=== PATIENT | female | born 1995 | race Caucasian/White ===

== ENCOUNTER 2022-06-25 06:24 | Inpatient (IN) ==
[~2022-06-25 06:24] MED LIST: ANCEF VIAL 1 GRAM IVP ONE; D5 1/2 NS 1,000 ML 1,000 ML IV SCH; KETAMINE HCL ONE; ULTANE GAS IN ONE
[2022-06-25] MEDS ORDERED: NS 100 ML IV 100 ML ONE (06:41)
[2022-06-25] MEDS ORDERED: ANCEF VIAL 1 GRAM ONE (06:41)
[2022-06-25] MEDS ORDERED: NS 1,000 ML IV 1,000 ML ONE ×2 (06:41→09:04)
[2022-06-25] MEDS ORDERED: ZOFRAN INJ 4 MG VIAL ONE (06:55)
[2022-06-25] MEDS ORDERED: FENTANYL VIAL INJ 100 mcg ONE (06:55)
[2022-06-25] MEDS ORDERED: PEPCID 20 MG VIAL ONE (06:55)
[2022-06-25] MEDS ORDERED: VERSED ONE (06:55)
[2022-06-25] MEDS ORDERED: DIPRIVAN VIAL 20 ML ONE (06:56)
[2022-06-25] MEDS ORDERED: TORADOL 30 MG VIAL ONE (06:56)
[2022-06-25] MEDS ORDERED: BRIDION ONE (06:56)
[2022-06-25] MEDS ORDERED: BETADINE SOLN ONE (07:20)
[2022-06-25 07:30] VITALS: BMI 24.4
[2022-06-25] MEDS ORDERED: LACRI-LUBE S.O.P. ONE (07:35)
[2022-06-25] MEDS ORDERED: OFIRMEV IV 1000 MG VIAL 1,000 MG/100 ML VIAL IV ONE (07:36)
[2022-06-25] MEDS ORDERED: DECADRON INJ ONE (07:53)
[2022-06-25] MEDS ORDERED: DILAUDID INJ ONE (08:18)
[2022-06-25] MEDS ORDERED: BENADRYL INJ 50 MG VIAL IVP PRN ×2 (09:18→10:24)
[2022-06-25] MEDS ORDERED: PHENERGAN INJ 25 MG IM PRN (09:18)
[2022-06-25] MEDS ORDERED: DILAUDID INJ IVP PRN (09:18)
[2022-06-25] MEDS ORDERED: BARHEMSYS INJ IVP PRN (09:18)
[2022-06-25] MEDS ORDERED: BARHEMSYS INJ ONE ×2 (09:55→09:56)
[2022-06-25] MEDS ORDERED: TORADOL 30 MG VIAL IVP PRN (10:24)
[2022-06-25] MEDS ORDERED: NovoLIN R (or HumuLIN R) SUBCUT PRN (10:24)
[2022-06-25] MEDS ORDERED: ZOFRAN INJ 4 MG VIAL IVP PRN (10:24)
[2022-06-25] MEDS: MORPHINE SULFATE PCA 30 MG IVP PRN ×2 (11:29→18:26)
[2022-06-25] MEDS: NS 1,000 ML IV 1,000 ML IV SCH ×3 (15:36→23:55)
[2022-06-25] MEDS: SNACK - Diabetic Appropriate PO SCH (22:00)
[2022-06-26] MEDS: NS 1,000 ML IV 1,000 ML IV SCH ×3 (03:29→17:32)
[2022-06-26 05:45] LABS: BASOPHILS % (AUTO) 0.2 % (0.2-1.0); EOSINOPHILS % (AUTO) 0.1 % (0.9-2.9); HEMATOCRIT 27.8 % (36.0-47.0); HEMOGLOBIN 10.1 g/dL (12.0-16.0); LYMPHOCYTES # (AUTO) 1.7 X10^3/uL (1.3-2.9); LYMPHOCYTES % (AUTO) 25.7 % (21.0-51.0); MEAN CORPUSCULAR HEMOGLOBIN 30.9 pg (27.0-34.0); MEAN CORPUSCULAR HGB CONC 36.3 g/dL (33.0-35.0); MEAN CORPUSCULAR VOLUME 85.1 fL (80.0-100.0); MEAN PLATELET VOLUME 8.4 fL (7.4-11.0); MONOCYTES # (AUTO) 0.5 x10^3/uL (0.3-0.8); NEUTROPHILS # (AUTO) 4.4 x10^3/uL (2.2-4.8); RED BLOOD COUNT 3.27 X10^6/uL (3.5-5.4); RED CELL DISTRIBUTION WIDTH 13.3 % (11.6-16.5); WHITE BLOOD COUNT 6.6 X10^3/uL (3.6-10.0)
[2022-06-26 05:46] LABS: BLOOD UREA NITROGEN 6 mg/dL (7-18); CALCIUM 7.1 mg/dL (8.5-10.1); CARBON DIOXIDE 27.3 mmol/L (21-32); CHLORIDE 107 mmol/L (98-107); CREATININE 0.49 mg/dL (0.55-1.02); SODIUM 139 mmol/L (136-145); eGFR NON BLACK RACES > 60 (>60)
[2022-06-26] MEDS ORDERED: MOTRIN TAB 800 MG PO PRN (07:20)
[2022-06-26] MEDS: COLACE CAP 100 MG PO SCH ×2 (08:06→20:28)
[2022-06-26] MEDS: CELEXA PO SCH (08:06)
[2022-06-26] MEDS: ESTRACE PO SCH (08:07)
[2022-06-26] MEDS ORDERED: PATIENT'S HOME MEDICATION PO SCH (09:00)
[2022-06-26] MEDS: PERCOCET TAB 5/325 MG PO PRN ×2 (11:54→20:30)
[2022-06-26] MEDS: BACTROBAN TOPICAL OINT TOP SCH ×2 (13:21→21:10)
[2022-06-26] MEDS: SNACK - Diabetic Appropriate PO SCH (20:30)
[2022-06-27] MEDS: NS 1,000 ML IV 1,000 ML IV SCH ×2 (00:13→04:19)
[2022-06-27] MEDS: PERCOCET TAB 5/325 MG PO PRN (04:24)
[2022-06-27] MEDS: BACTROBAN TOPICAL OINT TOP SCH (06:14)
[2022-06-27 08:01] VITALS: BP 124/57
[2022-06-27] MEDS: ESTRACE PO SCH (08:04)
[2022-06-27] MEDS: COLACE CAP 100 MG PO SCH (08:04)
[2022-06-27] MEDS: CELEXA PO SCH (08:04)
== END 2022-06-27 09:30 | disposition home or self-care (01) | DRG 983 ==
LOC: MED/SURG 06:24
PROVIDERS: ADMIT Specialist; ATTEND Specialist
DX: Z01.811 Encounter for preprocedural respiratory examination; Z01.818 Encounter for other preprocedural examination; N94.4 Primary dysmenorrhea; N94.19 Other specified dyspareunia; Z01.812 Encounter for preprocedural laboratory examination; R10.2 Pelvic and perineal pain; N92.5 Other specified irregular menstruation; Z01.810 Encounter for preprocedural cardiovascular examination